=== PATIENT | female | born 1980 | race Hispanic/Latino ===

== ENCOUNTER → 2016-12-10 | Outpatient (CLI) | payer OTHER ==
--- NOTE | 2016-12-10 15:38 | REP ---
Obstetric sonography: History: Supervision of for anatomy. Findings: Scanning through the gravid uterus demonstrates a viable single intrauterine gestation in a transverse head to the maternal right lie. motion is observed and heart rate is recorded at 160 beats per minute. A posterior grade 0 placenta is seen without evidence of previa or abruption. Amniotic fluid is subjectively normal. The closed cervical length is 4.3 cm, measured transabdominally. No extrauterine abnormalities observed. There has been appropriate interval growth. No anomaly is seen. The fetus is not well visualized due to position. Choroid plexus, cerebellum and posterior fossa, face and profile, lungs, four-chamber heart and outflow tract views, and diaphragm are all less than optimally seen. The following anatomic structures are identified and felt to be unremarkable: cranium, cavum, left-sided stomach, abdominal wall cord insertion, three-vessel cord, kidneys and bladder, spine, and upper and lower extremities. feet are less than optimally seen. Biometry chart: BPD 5.0 cm = 21 weeks 1 day Head circumference 18.8 cm = 21 weeks 1 day Abdominal circumference 16.9 cm = 21 weeks 6 days Femur length 3.9 cm = 22 weeks 5 days Humeral length 3.7 cm = 22 weeks 5 days HC/AC ratio normal 1.1 cephalic index normal 0.73 estimated weight 473 grams 1 pound 0 ounces 94th percentile for 20 weeks 5 days. Impression: Viable single intrauterine gestation at 21 weeks 6 days by today's composite sonographic criteria. Expected gestational age estimate based on prior sonography is 20 weeks 5 days. LB by prior sonography April 24, 2017. anatomic survey less than complete due to position and maternal body habitus. Signed by Gustavo Munguia MD 12/10/2016 03:40 P
== END ==
LOC: M RAD 11:02
PROVIDERS: ATTEND Obstetrics & Gynecology
DX: Z34.82 Encounter for supervision of other normal pregnancy, second trimester (principal)